=== PATIENT | female | born 1975 | race Caucasian/White ===

== ENCOUNTER 2016-08-23 20:23 | Emergency (ER) | payer SELFPAY ==
[2016-08-23 20:36] VITALS: TEMP 97.7
[2016-08-23 20:37] VITALS: BMI 32.9
--- NOTE | 2016-08-23 20:51 | EDPRACDOC ---
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 PT STATES THAT SHE WAS WORKING IN [place] AND SOMEHOW TWISTED HER HAND. STATES SHE FELT A POP AT THE RIGHT THUMB AT THE IP JOINT. NO OTHER COMPLAINT. Location: Reports: Right, Thumb Mechanism: Reports: Unknown Circumstances: Reports: Other ED Past Medical History - History Reviewed Yes Nurses notes reviewed and agree except as marked EDM Review of Systems - Review of Systems ROS Negative Except as Marked: Yes All systems reviewed and were negative except as marked Constitutional: No Symptoms Reported Respiratory: No Symptoms Reported Cardiovascular: No Symptoms Reported Gastrointestinal: No Symptoms Reported Neurological: No Symptoms Reported Musculoskeletal: Hand Integumentary: Bruising - Physical Exam Constitutional: Alert (Awake), No apparent distress Oriented to: Time, Person, Place Last recorded Vital Signs: Last Vital Signs Temp 97.7 F 08/23/16 20:36 Pulse 76 08/23/16 20:36 Resp 18 08/23/16 20:36 BP 150/84 08/23/16 20:36 Pulse Ox 98 08/23/16 20:36 Oxygen Pulse Oxygen Saturation 98 O2 Device Oxygen Flow Rate Fraction of Inspired Oxygen ( FIO2) - HEENT Head: Normal Eye Exam: Normal Neck: Normal, Denies Pain, Midline - Respiratory/Cardiovascular Respiratory: Normal - CTA Cardiovascular: Normal - GI Palpation: Normal Tenderness: Non tender - Musculoskeletal Back: Normal Extremities: Other (MILD BRUISING NOTED ALONG THE RIGHT DORSAL THUMB WITH APPARENT DEFORMITY; PT STATES "TOO PAINFUL TO MOVE". CAP REFILL < 1) - Integumentary Skin: Normal Lymphatics: Normal - Neurologic Cerebellar: Normal Mood Description: Normal Thought: Coherent Perception: Normal ED Hand Problem Physical Exam - Musculoskeletal Hand: Normal Wrist: Normal Digit: Limited ROM, Moderate Tenderness Digit Strength: Other (UNABLE TO ASSESS) Nail: Normal Nailbed: Normal Soft Tissue: Tender Distal Function/Circulation: Normal - Integumentary Skin: Ecchymosis Lymphatics: Normal ED Procedures - Splinting 1st splint Location: RIGHT HAND Pre-Made Type: velcro Splint: thumb spica Pre-Proc Neuro Vasc Exam: normal Post-Proc Neuro Vasc Exam: normal - Departure Disposition: Home Condition: Good Final Diagnosis: Injury of hand Instructions: RICE: Routine Care for Injuries Education/Counseling Given To: Patient Education/Counseling Given Regarding: Diagnosis, Treatment, Follow Up Referrals: None,No Provider [Primary Care Provider] - One Week Prescriptions: Meloxicam [Mobic] 7.5 mg PO BID #20 tab Additional Instructions: WEAR SPLINT MUCH POSSIBLE. IF PAIN PERSISTS, FOLLOW UP WITH ORTHO.
--- NOTE | 2016-08-23 21:57 | DIRPT ---
CLINICAL DATA: Twisting injury to right thumb; heard a pop. Pain radiates to the palm. Initial encounter. EXAM: RIGHT HAND - COMPLETE 3+ VIEW COMPARISON: None. FINDINGS: There is no evidence of fracture or dislocation. The joint spaces are preserved. The carpal rows are intact, and demonstrate normal alignment. Mild negative ulnar variance is noted. The soft tissues are unremarkable in appearance. IMPRESSION: No evidence of fracture or dislocation. Electronically Signed By: Earle Painter M.D. On: 08/23/2016 21:54
[2016-08-23 22:08] VITALS: BP 132/66; PULSE 91
== END 2016-08-23 22:21 | disposition home or self-care (01) ==
LOC: EDMC 20:23
DX: S69.91XA Unspecified injury of right wrist, hand and finger(s), initial encounter (principal); X58.XXXA Exposure to other specified factors, initial encounter; Y93.H2 Activity, gardening and landscaping
CPT/HCPCS: 29125; 99282